=== PATIENT | female | born 1965 | race Caucasian/White ===

== ENCOUNTER → 2019-06-07 | Outpatient (CLI) | payer OTHER ==
--- NOTE | 2019-06-07 15:05 | 2DMMODE ---
[place] [address] 2 D/M-MODE ECHOCARDIOGRAM Name: APOLLO CALDERA Room: [facility]#: [id number] Admission: 06/07/19 Attend Phys: Anjelica Mason Discharge: Date of : 61 Date of Service: 06/07/19 1505 Report #: [id number] THIS REPORT FOR: //name// APPROVED REPORT Study performed: 06/07/2019 12:47:24 EXAM: Comprehensive 2D, Doppler, and color-flow Echocardiogram Patient Location: Out-Patient BSA: 1.99 HR: 67 bpm BP: 120/72 mmHg Other Information Study Quality: Good Indications Palpitations Tachycardia 2D Dimensions IVSd: 11.32 (7-11mm) LVOT Diam: 20.42 (18-24mm) LVDd: 51.18 mm PWd: 9.43 (7-11mm) Ascending Ao: 34.45 (22-36mm) LVDs: 29.57 (25-40mm) Aortic Root: 32.48 mm Volumes Left Atrial Volume (Systole) LA ESV Index: 24.00 mL/m2 Aortic Valve AoV Peak Da.: 1.73 m/s AO Peak Gr.: 11.96 mmHg LVOT Max P.58 mmHg AO Mean Gr.: 6.47 mmHg LVOT Mean P.54 mmHg LVOT Max V: 0.95 m/s AO V2 VTI: 36.98 cm LVOT Mean V: 0.56 m/s MANJINDER (VTI): 1.96 cm2 LVOT V1 VTI: 22.15 cm Mitral Valve E/A Ratio: 1.30 MV Decel. Time: 232.06 ms MV E Max Da.: 0.78 m/s MV PHT: 67.30 [place] [address] 2 D/M-MODE ECHOCARDIOGRAM Name: APOLLO CALDERA Room: [facility]#: [id number] Admission: 06/07/19 Attend Phys: Anjelica Mason Discharge: Date of : 61 Date of Service: 06/07/19 1505 Report #: [id number] MVA (PHT): 3.27 cm2 TDI E/Lateral E': 4.59 E/Medial E': 7.09 Medial E' Da.: 0.11 m/s Lateral E' Da.: 0.17 m/s Pulmonary Valve PV Peak Da.: 1.03 m/s PV Peak Gr.: 4.22 mmHg Left Ventricle The left ventricle is normal size. There is normal LV segmental wall motion. There is normal left ventricular wall thickness. Left ventricular systolic function is normal. The left ventricular ejection fraction is within the normal range. LVEF is 55-60%. The left ventricular diastolic function is normal. Right Ventricle The right ventricle is normal size. The right ventricular systolic function is normal. Atria The left atrium size is normal. The right atrium size is normal. Aortic Valve Mild aortic valve sclerosis. No aortic regurgitation is present. There is no aortic valvular stenosis. Mitral Valve The mitral valve is normal in structure. There is no mitral valve regurgitation noted. No evidence of mitral valve stenosis. Tricuspid Valve The tricuspid valve is normal in structure. There is no tricuspid valve regurgitation noted. Pulmonic Valve The pulmonary valve is normal in structure. There is no pulmonic valvular regurgitation. Great Vessels The aortic root is normal in size. IVC is normal in size and collapses >50% with inspiration[place] [address] 2 D/M-MODE ECHOCARDIOGRAM Name: APOLLO CALDERA Room: [facility]#: [id number] Admission: 06/07/19 Attend Phys: Anjelica Mason Discharge: Date of : 61 Date of Service: 06/07/19 1505 Report #: [id number] There is no pericardial effusion. <Conclusion> The left ventricle is normal size. There is normal left ventricular wall thickness. Left ventricular systolic function is normal. The left ventricular ejection fraction is within the normal range. The left ventricular diastolic function is normal. The right ventricle is normal size. The left atrium size is normal. Mild aortic valve sclerosis. No aortic regurgitation is present. There is no aortic valvular stenosis. The mitral valve is normal in structure. The tricuspid valve is normal in structure. IVC is normal in size and collapses >50% with inspiration. There is no pericardial effusion. There is normal LV segmental wall motion. LVEF is 55-60%. <ELECTRONICALLY SIGNED> By: Prasad Gonzales MD, [facility] 06/07/19 1505 1505 1505 Prasad Gonzales MD, [facility] /INF
== END ==
LOC: M.CRD 12:34
DX: I49.3 Ventricular premature depolarization (principal); I47.1 Supraventricular tachycardia